=== PATIENT | male | born 1955 | race Caucasian/White ===

== ENCOUNTER → 2023-05-24 | Outpatient (CLI) | payer BC ==
--- NOTE | 2023-05-25 15:55 | US ---
EXAMINATION TYPE: US kidneys/renal and bladder DATE OF EXAM: 05/24/2023 COMPARISON: NONE CLINICAL INDICATION: Male, 67 years old with history of R109 RIGHT FLANK PAIN; History of kidney ston es EXAM MEASUREMENTS: Right Kidney: 13.3 x 5.7 x 5.1 cm Left Kidney: 12.0 x 6.5 x 5.6 cm Right Kidney: no hydronephrosis or masses seen Left Kidney: 3.0cm exophytic cyst medial mid pole. No hydronephrosis. Bladder: wnl Bilateral Jets seen: yes IMPRESSION: No hydronephrosis. Benign 3.0 cm exophytic cyst from the left kidney.
== END | disposition home or self-care (01) ==
LOC: RADUSWWP 13:56
PROVIDERS: ATTEND Internal Medicine
DX: R10.9 Unspecified abdominal pain (principal)
CPT/HCPCS: 76770